=== PATIENT | female | born 1965 | race Caucasian/White ===

== ENCOUNTER 2017-11-19 08:12 | Outpatient (CLI) | payer OTHER ==
[~2017-11-19 08:12] MED LIST: AMOX1TAB12; AVALIDE 150-12.1 TA1; CEPHULAC10 G/15 ML PO; CLONAZEPAM2 MG; EFFEXOR100 MG PO; FIRST-OMEPR2 MG/1 ML PO; IBUPROFEN800 MG PO; KETO10TA2 PO; KLONOPIN2 MG/TAB PO; PAXIL20 MG; SEPTRA DS TABLE1 TAB PO; TAMS0.4C PO; TRAZODONE HCL50 MG; VASOTEC20 MG PO
== END 2017-11-19 08:36 | disposition home or self-care (01) ==
LOC: LAB 08:12
DX: D64.89 Other specified anemias (principal); E11.9 Type 2 diabetes mellitus without complications; E03.8 Other specified hypothyroidism; E55.9 Vitamin D deficiency, unspecified

== ENCOUNTER 2017-11-19 09:04 | Outpatient (CLI) | payer OTHER | END 2017-11-19 09:22 | disposition home or self-care (01) | LOC: NUCLEAR 09:04 | DX: M13.89 Other specified arthritis, multiple sites (principal) | CPT/HCPCS: A9503; 78306 ==

== ENCOUNTER 2018-03-10 11:16 | Outpatient (CLI) | payer OTHER | END 2018-03-10 11:26 | disposition home or self-care (01) | LOC: LAB 11:16 | DX: N20.0 Calculus of kidney (principal); Z51.81 Encounter for therapeutic drug level monitoring ==

== ENCOUNTER 2018-03-10 13:45 | Outpatient (CLI) | payer OTHER | END 2018-03-10 15:22 | disposition home or self-care (01) | LOC: MRI 13:45 | DX: R51 Headache (principal) | CPT/HCPCS: 70553 ==

== ENCOUNTER → 2018-03-23 08:43 | Outpatient (CLI) | payer OTHER | END | disposition home or self-care (01) | LOC: LAB 03-22 09:15 | DX: E03.8 Other specified hypothyroidism (principal) ==

== ENCOUNTER 2018-03-23 09:05 | Outpatient (CLI) | payer OTHER | END 2018-03-23 09:09 | disposition home or self-care (01) | LOC: RAD 09:05 | DX: R07.89 Other chest pain (principal) ==

== ENCOUNTER 2018-04-21 11:34 | Outpatient (CLI) | payer OTHER ==
[~2018-04-21] VITALS: Ht 154.9 cm; Wt 71.2 kg
== END 2018-04-21 11:55 | disposition home or self-care (01) ==
LOC: OFIC 805 11:34
DX: R43.0 Anosmia (principal); L29.9 Pruritus, unspecified; R49.0 Dysphonia; K21.0 Gastro-esophageal reflux disease with esophagitis

== ENCOUNTER → 2018-04-28 | Outpatient (CLI) | payer OTHER | END | disposition home or self-care (01) | LOC: MAMO-SONO 09:39 | DX: N63.10 Unspecified lump in the right breast, unspecified quadrant (principal); N63.20 Unspecified lump in the left breast, unspecified quadrant; Z12.31 Encounter for screening mammogram for malignant neoplasm of breast ==

== ENCOUNTER → 2018-06-03 | Outpatient (CLI) | payer OTHER | END | disposition home or self-care (01) | LOC: SONOGRAMA 14:00 | DX: N60.11 Diffuse cystic mastopathy of right breast (principal); N60.12 Diffuse cystic mastopathy of left breast; R92.0 Mammographic microcalcification found on diagnostic imaging of breast ==

== ENCOUNTER 2021-04-15 16:32 | Outpatient (CLI) | payer OTHER | END 2021-04-15 16:37 | disposition home or self-care (01) | LOC: RAD 16:32 | PROVIDERS: ATTEND Anesthesiology | DX: S82.891A Other fracture of right lower leg, initial encounter for closed fracture (principal) ==